=== PATIENT | male | born 1975 | race Caucasian/White ===

== ENCOUNTER 2017-11-29 15:01 | Emergency (ER) | payer SELFPAY | END 2017-11-29 15:44 | disposition home or self-care (01) | LOC: FTE 15:01 | DX: L03.011 Cellulitis of right finger (principal); E11.9 Type 2 diabetes mellitus without complications; Z79.84 Long term (current) use of oral hypoglycemic drugs | CPT/HCPCS: 99284 ==

== ENCOUNTER 2018-12-28 18:38 | Inpatient (IN) | payer OTHER ==
[2018-12-28 19:05] LABS: ADD MAN DIFF? NO
[2018-12-28 19:08] LABS: ABNORMAL IP MESSAGE 1; BASOPHILS % 0.3 % (0.0-2.0); EOSINOPHILS % 0.1 % (0.0-7.0); HEMATOCRIT 49.4 % (42.0-52.0); HEMOGLOBIN 15.1 g/dl (14.0-18.0); LYMPHOCYTES # 1.4 10^3/ul (0.8-2.9); LYMPHOCYTES % 12.8 % (15.0-51.0); MEAN CORPUSCULAR HGB CONC 30.6 g/dl (32.0-37.0); MEAN CORPUSCULAR VOLUME 65.4 fl (82.0-101.0); MEAN PLATELET VOLUME 9.9 fl (7.4-10.4); MONOCYTE # 1.5 10^3/ul (0.3-0.9); MONOCYTES % 14.6 % (0.0-11.0); NEUTROPHIL # 7.6 10^3/ul (1.6-7.5); NEUTROPHILS % 71.8 % (39.0-77.0); PLATELET COUNT 258 10^3/UL (140-415); POSITIVE DIFF @See below; RED BLOOD COUNT 7.55 10^6/ul (4.70-6.10); RED CELL DISTRIBUTION WIDTH 19.7 % (11.5-14.5)
[2018-12-28 19:08] LABS: WHITE BLOOD COUNT 10.5 10^3/ul (4.8-10.8)
[2018-12-28 19:28] LABS: INR 1.09; MODE ROOM AIR; MetHgb Venous 0.5 %; PROTIME 14.2 Sec (11.9-14.9); PT RATIO 1.1; Sample Type Blood venous; Site VENOUS LINE; Venous COHb 0.5 %; Venous Fraction OxyHgb 49.1 %; Venous Oxygen Sat 49.6 mmHG (55.0-75.0); Venous Total Hemglobin 15.5 g/dl
[2018-12-28 19:29] LABS: PARTIAL THROMBOPLASTIN TIME 31.9 Sec (23.0-35.0)
[2018-12-28 19:39] LABS: ALANINE AMINOTRANSFERASE 46 IU/L (13-69); ALBUMIN 4.2 g/dl (3.3-4.9); ALKALINE PHOSPHATASE 85 IU/L (42-121); ANION GAP 18 (5-13); ASPARTATE AMINO TRANSFERASE 46 IU/L (15-46); BILIRUBIN,INDIRECT 0.6 mg/dl (0-1.1); BILIRUBIN,TOTAL 0.6 mg/dl (0.2-1.3); BLOOD UREA NITROGEN 36 mg/dl (7-20); CALCIUM 7.9 mg/dl (8.4-10.2); CARBON DIOXIDE 17 mmol/L (21-31); CHLORIDE 101 mmol/L (97-110); CREATININE 1.64 mg/dl (0.61-1.24); Estimated GFR 46 mL/min (>60); GLUCOSE 171 mg/dl (70-220); POTASSIUM 4.6 mmol/L (3.5-5.1); SODIUM 136 mmol/L (135-144); TOTAL PROTEIN 7.2 g/dl (6.1-8.1)
[2018-12-28] MEDS: SODIUM CHLORIDE 0.9% 1L BAG IV* (19:40)
[2018-12-28 19:49] LABS: TROPONIN-I < 0.012 ng/ml (0.000-0.120)
[2018-12-28] MEDS: PIPER-TAZO 3.375 GM IV (PMX) 100 ML IVPB (19:51)
[2018-12-28] MEDS: ACETAMINOPHEN 325 MG TAB PO (19:52)
[2018-12-28] MEDS: morphine 2 MG INJ IV (19:52)
[2018-12-28] MEDS: ONDANSETRON 4 MG INJ IV (19:53)
[2018-12-28 20:28] LABS: PHOSPHORUS 4.2 mg/dl (2.5-4.9)
[2018-12-28 20:28] LABS: MAGNESIUM 1.3 mg/dl (1.7-2.5)
[2018-12-28 21:07] LABS: URINE BLOOD (Dip) POC Negative (NEGATIVE); URINE GLUCOSE (Dip) POC Negative (NEGATIVE); URINE KETONES (Dip) POC Trace (NEGATIVE); URINE LEUKOCYTE EST (Dip) POC Negative (NEGATIVE); URINE NITRITE (Dip) POC Negative (NEGATIVE); URINE TOTAL PROTEIN POC 3+ (NEGATIVE)
[2018-12-28 21:07] LABS: URINE PH (Dip) POC 5.5 (5.0-8.5)
[2018-12-28 21:17] LABS: ADD UMIC YES; UR ASCORBIC ACID NEGATIVE (NEGATIVE); UR BACTERIA FEW /HPF (NONE SEEN); UR BILIRUBIN (Dip) NEGATIVE (NEGATIVE); UR BLOOD (Dip) NEGATIVE (NEGATIVE); UR CLARITY CLOUDY (CLEAR); UR COLOR AMBER (YELLOW); UR GLUCOSE (Dip) NEGATIVE (NEGATIVE); UR HYALINE CAST MODERATE /HPF (NONE SEEN); UR KETONES (Dip) NEGATIVE (NEGATIVE); UR LEUKOCYTE ESTERASE (Dip) NEGATIVE Leu/ul (NEGATIVE); UR MUCUS MODERATE /HPF (NONE SEEN); UR NITRITE (Dip) NEGATIVE (NEGATIVE); UR RBC 2 /HPF (0-5); UR SPECIFIC GRAVITY (Dip) 1.018 (1.003-1.030); UR SQUAMOUS EPITHELIAL CELL FEW /HPF (FEW); UR TOTAL PROTEIN (Dip) 2+ mg/dl (NEGATIVE); UR UROBILINOGEN (Dip) NEGATIVE (NEGATIVE); UR WBC 3 /HPF (0-5)
[2018-12-28] MEDS: SOD CHLORIDE 0.9% 1,000 ML IV ×2 (22:21→23:24)
[2018-12-28 22:36] LABS: LACTIC ACID 3.7 mmol/L (0.5-2.0)
[2018-12-28] MEDS: LIDOCAINE 2% VISC 15 ML CUP PO (22:46)
[2018-12-28] MEDS ORDERED: VANCOMYCIN IV PER PHARMACY XX (23:00)
[2018-12-28] MEDS ORDERED: ACETAMINOPHEN 325 MG TAB PO (23:00)
[2018-12-28] MEDS ORDERED: NACL 0.9% 3 ML SYG IV (23:00)
[2018-12-28] MEDS: VANCOMYCIN 1 GM (PMX) 250 ML IVPB (23:24)
[2018-12-28 23:59] LABS: LACTIC ACID 2.6 mmol/L (0.5-2.0)
[2018-12-29] MEDS: HYDROmorphONE 2 MG/ML SYG IV (00:11)
[2018-12-29] MEDS: ONDANSETRON 4 MG INJ IV (00:11)
[2018-12-29] MEDS: PIPER-TAZO 3.375 GM IV (PMX) 100 ML IVPB ×2 (01:25→06:31)
[2018-12-29] MEDS: SOD CHLORIDE 0.9% 500 ML IV (02:24)
[2018-12-29] MEDS: MAGNESIUM SULFATE 2 GM/50 ML 50 ML IVPB (02:26)
[2018-12-29 05:37] LABS: ADD MAN DIFF? NO
[2018-12-29 05:46] LABS: ABNORMAL IP MESSAGE 1; BASOPHILS % 0.2 % (0.0-2.0); HEMOGLOBIN 13.8 g/dl (14.0-18.0); LYMPHOCYTES # 1.6 10^3/ul (0.8-2.9); LYMPHOCYTES % 12.1 % (15.0-51.0); MEAN CORPUSCULAR HEMOGLOBIN 20.1 pg (29.0-33.0); MEAN CORPUSCULAR HGB CONC 30.7 g/dl (32.0-37.0); MEAN CORPUSCULAR VOLUME 65.6 fl (82.0-101.0); MEAN PLATELET VOLUME 10.2 fl (7.4-10.4); MONOCYTE # 1.4 10^3/ul (0.3-0.9); MONOCYTES % 10.5 % (0.0-11.0); NEUTROPHIL # 10.2 10^3/ul (1.6-7.5); NEUTROPHILS % 76.7 % (39.0-77.0); PLATELET COUNT 247 10^3/UL (140-415); POSITIVE DIFF @See below; RED BLOOD COUNT 6.86 10^6/ul (4.70-6.10); RED CELL DISTRIBUTION WIDTH 19.9 % (11.5-14.5)
[2018-12-29 05:46] LABS: WHITE BLOOD COUNT 13.3 10^3/ul (4.8-10.8)
[2018-12-29 06:17] LABS: ALANINE AMINOTRANSFERASE 99 IU/L (13-69); ALBUMIN 3.1 g/dl (3.3-4.9); ALBUMIN/GLOBULIN RATIO 1.19; ALKALINE PHOSPHATASE 57 IU/L (42-121); ANION GAP 10 (5-13); ASPARTATE AMINO TRANSFERASE 113 IU/L (15-46); BILIRUBIN,INDIRECT 0.5 mg/dl (0-1.1); BILIRUBIN,TOTAL 0.5 mg/dl (0.2-1.3); BLOOD UREA NITROGEN 41 mg/dl (7-20); CALCIUM 7.1 mg/dl (8.4-10.2); CARBON DIOXIDE 16 mmol/L (21-31); CHLORIDE 110 mmol/L (97-110); CHOL/HDL RATIO 4.2 RATIO; CHOLESTEROL 89 mg/dl (100-200); CREATININE 1.53 mg/dl (0.61-1.24); Estimated GFR 50 mL/min (>60); GLUCOSE 168 mg/dl (70-220); HDL CHOLESTEROL 21 mg/dl (27-67); LDL CHOLESTEROL,CALCULATED 45 mg/dl; MAGNESIUM 2.2 mg/dl (1.7-2.5); POTASSIUM 3.9 mmol/L (3.5-5.1); SODIUM 136 mmol/L (135-144); TOTAL PROTEIN 5.7 g/dl (6.1-8.1); TRIGLYCERIDES 115 mg/dl (0-149)
[2018-12-29 06:21] LABS: LACTIC ACID 1.8 mmol/L (0.5-2.0)
[2018-12-29 06:23] LABS: IRON < 10 ug/dl (35-150)
[2018-12-29 06:26] LABS: TOTAL IRON BINDING CAPACITY 269 ug/dl (241-421)
[2018-12-29] MEDS: PANTOPRAZOLE 40 MG INJ IV (06:31)
[2018-12-29 06:50] LABS: THYROID STIMULATING HORMONE 0.515 MIU/L (0.465-4.680)
[2018-12-29 07:41] LABS: ANISOCYTOSIS 2+ (0-0); BAND NEUTROPHILS #M 6.7 10^3/ul (0.0-0.6); BAND NEUTROPHILS % (M) 51 % (0-4); BURR CELLS 1+ (0-0); GIANT THROMBO% (M) 4 % (0-0); LYMPHOCYTES #M 1.9 10^3/ul (0.8-2.9); LYMPHOCYTES % (M) 15 % (15-51); METAMYELOCYTES #M 0.7 10^3/ul (0.0-0.0); METAMYELOCYTES %M 6 % (0-0); MICROCYTOSIS 2+ (0-0); MONOCYTE #M 1.3 10^3/ul (0.3-0.9); MONOCYTES % (M) 10 % (0-11); MYELOCYTES #M 0.2 10^3/ul (0.0-0.0); MYELOCYTES % (M) 2 % (0-0); OVALOCYTES 1+ (0-0); PLATELET ESTIMATE NORMAL; POIKILOCYTOSIS 2+ (0-0); REACTIVE LYMPHOCYTES #M 0.1 10^3/ul (0.0-0.0); REACTIVE LYMPHOCYTES% (M) 1 % (0-0); SEG NEUT #M 2.9 10^3/ul (1.6-7.5); SEGMENTED NEUTROPHILS (M) % 15 % (39-77); SMUDGE%M 63 % (0-0)
[2018-12-29] MEDS: SOD CHLORIDE 0.9% 1,000 ML IV ×2 (08:48→17:30)
[2018-12-29] MEDS: CIPROFLOXACIN 400MG/D5W 200 ML IVPB ×2 (09:15→20:12)
[2018-12-29 09:55] LABS: HEMOGLOBIN A1C 8.3 % (0-5.9)
[2018-12-29] MEDS ORDERED: GLUCOSE GEL 15 GRAM TUBE PO ×2 (10:00)
[2018-12-29] MEDS ORDERED: GLUCAGON 1 MG INJ IM (10:00)
[2018-12-29] MEDS ORDERED: DEXTROSE 50% 50 ML SYRINGE IV ×2 (10:00)
[2018-12-29] MEDS ORDERED: GLUCOSE GEL 15 GRAM TUBE BUCCAL (10:00)
[2018-12-29] MEDS: metroNIDAZOLE 500 MG/NS (PMX) 100 ML IVPB ×3 (10:33→17:24)
[2018-12-29] MEDS: VANCOMYCIN HCL 1.5 GM in SOD CHLORIDE 0.9% 250 ML IVPB ×2 (11:59→23:37)
[2018-12-29] MEDS: INSULIN ASPART [NOVOLOG] 3 ML PEN SC ×3 (13:00→20:30)
[2018-12-29] MEDS: morphine 2 MG INJ IV (20:12)
[2018-12-29 20:39] LABS: OCCULT BLOOD STOOL POSITIVE (NEGATIVE)
[2018-12-30] MEDS: INSULIN ASPART [NOVOLOG] 3 ML PEN SC ×5 (00:33→17:18)
[2018-12-30] MEDS: metroNIDAZOLE 500 MG/NS (PMX) 100 ML IVPB ×3 (00:42→13:48)
[2018-12-30] MEDS: ACCU-CHEK XX (00:44)
[2018-12-30] MEDS: PHENOL 1.4% SOLN 180 ML BTL MT ×2 (02:41→02:54)
[2018-12-30] MEDS: SOD CHLORIDE 0.9% 1,000 ML IV ×2 (02:55→13:51)
[2018-12-30] MEDS: PANTOPRAZOLE 40 MG INJ IV (06:19)
[2018-12-30 06:48] LABS: ADD MAN DIFF? NO
[2018-12-30 06:53] LABS: BASOPHILS % 0.2 % (0.0-2.0); EOSINOPHILS % 0.3 % (0.0-7.0); HEMATOCRIT 38.8 % (42.0-52.0); HEMOGLOBIN 12.3 g/dl (14.0-18.0); LYMPHOCYTES # 1.3 10^3/ul (0.8-2.9); LYMPHOCYTES % 13.2 % (15.0-51.0); MEAN CORPUSCULAR HEMOGLOBIN 20.3 pg (29.0-33.0); MEAN CORPUSCULAR HGB CONC 31.7 g/dl (32.0-37.0); MEAN PLATELET VOLUME 10.4 fl (7.4-10.4); MONOCYTES % 9.7 % (0.0-11.0); NEUTROPHIL # 7.6 10^3/ul (1.6-7.5); NEUTROPHILS % 76.1 % (39.0-77.0); PLATELET COUNT 220 10^3/UL (140-415); POSITIVE DIFF @See below; RED BLOOD COUNT 6.06 10^6/ul (4.70-6.10); RED CELL DISTRIBUTION WIDTH 19.8 % (11.5-14.5)
[2018-12-30 07:13] LABS: MAGNESIUM 2.4 mg/dl (1.7-2.5)
[2018-12-30 07:17] LABS: ALANINE AMINOTRANSFERASE 88 IU/L (13-69); ALBUMIN 3.1 g/dl (3.3-4.9); ALBUMIN/GLOBULIN RATIO 1.06; ALKALINE PHOSPHATASE 82 IU/L (42-121); ANION GAP 9 (5-13); ASPARTATE AMINO TRANSFERASE 50 IU/L (15-46); BILIRUBIN,INDIRECT 0.4 mg/dl (0-1.1); BILIRUBIN,TOTAL 0.4 mg/dl (0.2-1.3); BLOOD UREA NITROGEN 18 mg/dl (7-20); CALCIUM 8.3 mg/dl (8.4-10.2); CARBON DIOXIDE 23 mmol/L (21-31); CHLORIDE 109 mmol/L (97-110); CREATININE 0.72 mg/dl (0.61-1.24); Estimated GFR > 60 mL/min (>60); GLUCOSE 142 mg/dl (70-220); POTASSIUM 3.8 mmol/L (3.5-5.1); SODIUM 141 mmol/L (135-144)
[2018-12-30 08:37] LABS: ANISOCYTOSIS 1+ (0-0); BAND NEUTROPHILS #M 0.8 10^3/ul (0.0-0.6); BAND NEUTROPHILS % (M) 8 % (0-4); EOSINOPHILS % (M) 4 % (0-7); LYMPHOCYTES #M 2.1 10^3/ul (0.8-2.9); LYMPHOCYTES % (M) 21 % (15-51); MICROCYTOSIS 1+ (0-0); MONOCYTE #M 0.1 10^3/ul (0.3-0.9); MONOCYTES % (M) 1 % (0-11); PLATELET ESTIMATE NORMAL; POLYCHROMASIA 3+ (0-0); SEG NEUT #M 6.7 10^3/ul (1.6-7.5); SEGMENTED NEUTROPHILS (M) % 66 % (39-77); SMUDGE%M 6 % (0-0)
[2018-12-30] MEDS: CIPROFLOXACIN 400MG/D5W 200 ML IVPB (08:47)
[2018-12-30] MEDS ORDERED: IOHEXOL 300MG/ML 150 ML BTL (11:21)
[2018-12-30] MEDS ORDERED: PANTOPRAZOLE 40 MG INJ IV (21:00)
== END 2018-12-30 19:00 | disposition short-term general hospital (02) | DRG 389 ==
LOC: E/R 18:38 → TEL 22:45
PROC: 4A133R1 Monitoring of Arterial Saturation, Peripheral, Percutaneous Approach (ICD-10-PCS; principal; 2018-12-28)
DX: K56.609 Unspecified intestinal obstruction, unspecified as to partial versus complete obstruction (principal); E87.2 Acidosis; N17.9 Acute kidney failure, unspecified; K52.9 Noninfective gastroenteritis and colitis, unspecified; E66.9 Obesity, unspecified; Z68.34 Body mass index [BMI] 34.0-34.9, adult; E11.9 Type 2 diabetes mellitus without complications; Z79.84 Long term (current) use of oral hypoglycemic drugs; Z87.891 Personal history of nicotine dependence
CPT/HCPCS: 36415; 71045; 74176; 74250; 80053; 80061; 81001; 81003; 82270; 82728; 82803; 82962; 83036; 83540; 83605; 83735; 84100; 84443; 84484; 85025; 85610; 85730; 87040-91; 87045; 87075; 87086; 87177; 87205; 93005; 96365; 96375; 99285-25